=== PATIENT | female | born 1960 | race Caucasian/White ===

== ENCOUNTER → 2017-05-14 | Day surgery (SDC) | payer OTHER ==
[~2017-05-14] VITALS: Ht 172.7 cm; Wt 161.5 kg
[~2017-05-14] MED LIST: ACETAMINOPHEN 1000 MG/100 ML VIAL IV ONE; ACETAMINOPHEN/HYDROcodone 325 MG/7.5 MG TAB PO PRN; ASPI-110 PO; BUPIVACAINE HCL PF 0.5% 30 ML VIAL ONE; BUPR150CR PO; CEPH-460 PO; CHLORHEXIDINE GLUCONATE 2 % 1 PACK (2 CLOTHS) TOPICAL PRN; CHOL1CAP13 PO; DEXAMETHASONE SOD PHOS 4 MG/ML VIAL IV ONE; HYDR-3288 PO; HYDR25TA5 PO; HYDROmorphone HCL PF 2 MG/ML VIAL ONE; INSU1INJ13 SQ; INSULIN HUMAN REGULAR 1,000 UNITS/10 ML VIAL SQ PRN; LACTATED RINGER'S 1000 ML INJ 1,000 ML IV ONE; LACTATED RINGER'S 1000 ML IV PRN; LEVO-171 PO; LIDOCAINE HCL 1% PF 5 ML AMPULE OTHER ONE; LIDOCAINE HCL 2% 50 ML VIAL ONE; LISI40TA PO; LORA1TAB12 PO; MECL-62 PO; MEPERIDINE HCL 50 MG/ML VIAL IM PRN; METF1000 PO; METO50TA PO; METOPROLOL TARTRATE 25 MG TAB PO PRN; NEOMYCIN/POLYMYXIN 1 ML G.U. IRRIGANT IRRIGATION ONE; ONDANSETRON HCL 4 MG/2 ML VIAL IV PUSH ONE; POVIDONE IODINE 5% (ANTISEPSIS KIT) 4 APPLICATIONS EACH NARE PRN; PROPOFOL 200 MG/20 ML AMP IV ONE; ROCURONIUM INJ 50 MG/5 ML SYRINGE IV PUSH ONE; SODIUM CHLORID 0.9% 500 ML IV PRN; SUGAMMADEX SODIUM 200 MG/2 ML VIAL IV PUSH ONE; TRAM50TA PO; ceFAZolin 2 GM PREMIX 50 ML IV SCH; ePHEDrine/NS 25 MG/5 ML SYR IV ONE; insulin SQ
[2017-05-14 07:09] LABS: AUTOMATED NEUTROPHIL # 5.8 TH/MM3 (1.8-7.7); BASOPHIL # 0.1 TH/MM3 (0-0.2); BASOPHIL % 1.1 % (0.0-2.0); EOSINOPHIL # 0.2 TH/MM3 (0-0.4); EOSINOPHIL % 2.1 % (0.0-4.0); HEMATOCRIT 35.2 % (35.0-46.0); HEMO FLAGS DIFF FINAL; LYMPH % 30.1 % (9.0-44.0); LYMPHOCYTE # 2.9 TH/MM3 (1.0-4.8); MEAN CELL VOLUME 86.9 FL (80.0-100.0); MEAN CORPUSCULAR HEMOGLOBIN 28.2 PG (27.0-34.0); MEAN CORPUSCULAR HGB CONC 32.5 % (32.0-36.0); MONO % 5.7 % (0.0-8.0); PLATELET COUNT 362 TH/MM3 (150-450); RED BLOOD COUNT 4.05 MIL/MM3 (4.00-5.30); RED CELL DISTRIBUTION WIDTH 14.7 % (11.6-17.2); WHITE BLOOD COUNT 9.6 TH/MM3 (4.0-11.0)
[2017-05-14 11:26] VITALS: BP 155/85; PULSE 76; RESP 20; O2SAT 94
--- NOTE | 2017-05-14 13:03 | MP ---
cc: TYREE SERRANO III, M.D. DATE OF SURGERY: 05/14/2017 PREOPERATIVE DIAGNOSIS Left ulnar neuropathy and left carpal tunnel syndrome. POSTOPERATIVE DIAGNOSIS Left ulnar neuropathy and left carpal tunnel syndrome. PROCEDURE 1. Left ulnar nerve release at the elbow, in situ decompression. 2. Left ulnar nerve release at the wrist. 3. Left open carpal tunnel release. SURGEON Tyree Serrano III, MD DETAILS OF PROCEDURE The patient was brought to the operating room and placed supine on the operating table. After the correct site and side of surgery were verified by members of each team in the room multiple times including the patient and myself, and after adequate preoperative markings and preoperative written consent were verified by everyone, and after an adequate preoperative timeout was performed to everyone's satisfaction, and after adequate general anesthesia was achieved, the left upper extremity was prepped and draped in traditional sterile surgical fashion. A 50/50 mixture of 2% plain lidocaine and 0.5% plain Marcaine was infiltrated in the skin and subcutaneous tissue over the areas of planned incisions. The limb was exsanguinated with a gentle Lonnie wrap. A highly placed well-padded axillary tourniquet was inflated to 200 mmHg for approximately 40 minutes. A longitudinally oriented incision crossing transversely at the wrist flexion crease was made at the base of palm to the wrist. The palmar fascia was retracted in opposite directions. The transverse carpal ligament was identified and divided in its midline from its proximal most to its distal most extents completely freeing the carpal tunnel contents which were otherwise uncompromised. There was no evidence of any mass effect. The extension of the incision was then used to identify the ulnar nerve at the wrist which was found to have a significant compression just proximal to the wrist flexion crease by aniak tissue and this was released into the distal forearm. There were no other anatomic abnormalities or any other abnormalities identified. Thorough irrigation with saline was performed and the skin edges re-approximated using running 4-0 nylon sutures. Attention was then paid to the elbow. It was held on a large sterile bump at a 45 degree angle and a hockey-stick incision was made 1 cm anterior to the ulnar groove. Dissection was performed bluntly. Bipolar electrocautery was used as needed throughout the case. The median epicondyle was identified as was the ulnar nerve. There was a significant amount of crossing aniak tissue which was kinking the nerve just at the median epicondyle and distally creating obvious compression. Otherwise the nerve was freed in its aniak position from the down to the bifurcation and otherwise looked intact and non-compromised. There were no other anatomic abnormalities. Thorough irrigation was performed as well with the same irrigation. Passive range of motion of the elbow was done to full extension and full flexion and there was no evidence of any subluxation. However, the nerve had some laxity to it now as the significant compression was released so posterior tissue was then tacked anteriorly to the nerve to reinforce it staying in its aniak position. The axillary tourniquet was released. The hand and all fingers on the left became immediately soft, pink and warm and had brisk capillary refill of less than two seconds. The subcutaneous tissue was re-approximated with 3-0 Vicryl sutures and the skin edges re-approximated using running 4-0 nylon suture with a 1/4 inch [place] drain split in half longitudinally, placed into the deepest aspect of the wound and brought out distally. The hand and arm were thoroughly cleansed and dried. Additional local anesthetic was injected deeply for postoperative pain control. The hand and arm were thoroughly cleansed and dried. Betadine and Adaptic dressing was applied on top of the wounds followed by bulky soft dressing. A long arm posterior elbow splint keeping the elbow flexed 45 degrees was made. The patient was awakened from anesthesia and transported to the post-anesthesia care unit awake and in stable condition. Sponge, needle and instrument counts were correct at the end of the case as reported by the nurses in the room. MD NEREIDA Salinas III/[place] /9:43 AM /12:44 PM
--- NOTE | 2017-05-14 20:41 | EKG ---
Date Performed: 05/14/2017 Time Performed: 06:46:34 PTAGE: 56 years EKG: Sinus rhythm INFERIOR MYOCARDIAL INFARCTION , OF INDETERMINATE AGE ANTEROSEPTAL MYOCARDIAL INFARCTION , OF INDETE RMINATE AGE ABNORMAL ECG PREVIOUS TRACING : 02/13/2015 16.37 Compared to prior tracing no significant change DOCTOR: Toi Grande Interpretating Date/Time 05/14/2017 20:39:43
== END | disposition home or self-care (01) ==
LOC: HSDC 05:38
PROVIDERS: ATTEND Orthopaedic Surgery Hand Surgery
DX: G56.02 Carpal tunnel syndrome, left upper limb (principal); G56.22 Lesion of ulnar nerve, left upper limb; E11.9 Type 2 diabetes mellitus without complications; Z79.4 Long term (current) use of insulin
CPT/HCPCS: 01710; 01810; 64718; 64719; 64721; 82948; 85025; 93005; 94150; J0131; J0690; J1100; J1170; J2405; J3010; J7120